=== PATIENT | female | born 1990 | race Caucasian/White ===

== ENCOUNTER 2016-12-17 12:30 | Inpatient (IN) | payer OTHER ==
[2016-12-17] MEDS ORDERED: KETOROLAC 30 MG/ML 1 ML VIAL IVP STA (13:02)
[2016-12-17] MEDS ORDERED: SODIUM CHLORIDE 0.9% 1,000 ML IV STA (13:02)
[2016-12-17] MEDS ORDERED: MORPHINE SULFATE 4 MG/ML SYRINGE IV STA (13:02)
--- NOTE | 2016-12-17 13:02 | ED ---
General Adult HPI - General Chief complaint: Abdominal Pain Stated complaint: Gall Bladder issues Time Seen by Provider: 12/17/16 12:43 Source: patient, RN notes reviewed, old records reviewed Mode of arrival: ambulatory Limitations: no limitations - History of Present Illness Initial comments: This is a 26-year-old female who ER for evaluation of gallbladder disease. Epigastric and right upper quadrant abdominal pain. Patient has had her tubes tied, no chance of no nausea vomiting or diarrhea, she was late with no fevers. Patient has been seen by general surgery Dr. Sanchez prior for similar symptoms. Patient states he symptoms are now for 3 days radiating to back rotating around into her front. With nausea again without vomiting - Related Data Home Medications Medication Instructions Recorded Confirmed HYDROcodone/APAP 10-325MG [[place] 1 tab PO TID PRN 04/06/16 12/17/16 10-325] Albuterol Inhaler [Ventolin Hfa 1 - 2 puff INHALATION RT-Q6H PRN 12/17/16 Inhaler] Allergies Allergy/AdvReac Type Severity Reaction Status Date / Time No Known Allergies Allergy Verified 12/17/16 13:18 Review of Systems ROS Statement: Those systems with pertinent positive or pertinent negative responses have been documented in the HPI. ROS Other: All systems not noted in ROS Statement are negative. Past Medical History Past Medical History: Asthma Additional Past Medical History / Comment(s): Gallstones, Bipolar, DDD History of Any Multi-Drug Resistant Organisms: None Reported Past Surgical History: Section, Tubal Ligation Additional Past Surgical History / Comment(s): tubal ligation, section x 3 Past Psychological History: Anxiety, Bipolar, Depression Smoking Status: Current every day smoker Past Alcohol Use History: None Reported Past Drug Use History: None Reported General Exam Limitations: no limitations General appearance: alert, in no apparent distress Head exam: Present: atraumatic, normocephalic, normal inspection Eye exam: Present: normal appearance, PERRL, EOMI. Absent: scleral icterus, conjunctival injection, periorbital swelling ENT exam: Present: normal exam, mucous membranes moist Neck exam: Present: normal inspection. Absent: tenderness, meningismus, lymphadenopathy Respiratory exam: Present: normal lung sounds bilaterally. Absent: respiratory distress, wheezes, rales, rhonchi, stridor Cardiovascular Exam: Present: regular rate, normal rhythm, normal heart sounds. Absent: systolic murmur, diastolic murmur, rubs, gallop, clicks GI/Abdominal exam: Present: soft, tenderness, normal bowel sounds. Absent: distended, guarding, rebound, rigid Extremities exam: Present: normal inspection, full ROM, normal capillary refill. Absent: tenderness, pedal edema, joint swelling, calf tenderness Back exam: Present: normal inspection Neurological exam: Present: alert, oriented X3, CN II-XII intact Psychiatric exam: Present: normal affect, normal mood Skin exam: Present: warm, dry, intact, normal color. Absent: rash Course Vital Signs 12/17/16 12/17/16 12:35 15:26 Temperature 97.3 F L 97.9 F Pulse Rate 70 82 Respiratory 17 18 Rate Blood Pressure 113/56 105/66 O2 Sat by Pulse 100 100 Oximetry - Reevaluation(s) Reevaluation #1: 12/17/16 15:54 Patient's pain is symptoms are well controlled Reevaluation #2: 12/17/16 15:54 Spoke with on-call general surgery, will see and evaluate patient Medical Decision Making - Medical Decision Making 26 female here for evaluation of viral quadrant abdominal pain, ultrasound positive for cholecystitis, patient has history of gallbladder disease will be admitted for surgical evaluation and treatment - Lab Data Result diagrams: 12/17/16 12:56 12/17/16 12:56 Lab Results 12/17/16 12/17/16 Range/Units 12:56 12:56 WBC 8.6 (3.8-10.6) k/uL RBC 4.92 (3.80-5.40) m/uL Hgb 14.7 (11.4-16.0) gm/dL Hct 45.0 (34.0-46.0) % MCV 91.6 (80.0-100.0) fL MCH 29.9 (25.0-35.0) pg MCHC 32.6 (31.0-37.0) g/dL RDW 12.6 (11.5-15.5) % Plt Count 399 (150-450) k/uL Neutrophils % 67 % Lymphocytes % 23 % Monocytes % 5 % Eosinophils % 2 % Basophils % 1 % Neutrophils # 5.8 (1.3-7.7) k/uL Lymphocytes # 2.0 (1.0-4.8) k/uL Monocytes # 0.4 (0-1.0) k/uL Eosinophils # 0.2 (0-0.7) k/uL Basophils # 0.0 (0-0.2) k/uL Sodium 143 (137-145) mmol/L Potassium 4.0 (3.5-5.1) mmol/L Chloride 105 (98-107) mmol/L Carbon Dioxide 26 (22-30) mmol/L Anion Gap 12 mmol/L BUN 15 (7-17) mg/dL Creatinine 0.78 (0.52-1.04) mg/dL Est GFR (MDRD) Af Amer >60 (>60 ml/min/1.73 sqM) Est GFR (MDRD) Non-Af >60 (>60 ml/min/1.73 sqM) Glucose 79 (74-99) mg/dL Calcium 9.8 (8.4-10.2) mg/dL Total Bilirubin 1.0 (0.2-1.3) mg/dL AST 22 (14-36) U/L ALT 33 (9-52) U/L Alkaline Phosphatase 52 (38-126) U/L Total Protein 7.6 (6.3-8.2) g/dL Albumin 4.4 (3.5-5.0) g/dL Amylase 34 (30-110) U/L Lipase 54 (23-300) U/L - Radiology Data Radiology results: report reviewed (Ultrasound positive for acute cholecystitis) , image reviewed Disposition Clinical Impression: Acute cholecystitis, Biliary colic Disposition: ADMITTED IP TO THIS [facility] Condition: Good Referrals: Kailash Paniagua MD [Primary Care Provider] - 1-2 days
[2016-12-17] MEDS ORDERED: PANTOPRAZOLE 40 MG/10 ML VIAL IVP STA (13:03)
[2016-12-17] MEDS ORDERED: ONDANSETRON 4 MG/2 ML VIAL IVP STA (13:03)
[2016-12-17 13:18] LABS: Basophils % (A) 1 %; CH 30.6; CHCM 33.5; Eosinophils # (A) 0.2 k/uL (0-0.7); Eosinophils % (A) 2 %; HDW 2.33; HGB 14.7 gm/dL (11.4-16.0); Luc # (Auto) 0.22; Luc % (Auto) 3; Lymphocytes % (A) 23 %; MCH 29.9 pg (25.0-35.0); MCHC 32.6 g/dL (31.0-37.0); MCV 91.6 fL (80.0-100.0); Mean Platelet Volume 6.9; Monocytes # (A) 0.4 k/uL (0-1.0); Monocytes % (A) 5 %; Neutrophils # (A) 5.8 k/uL (1.3-7.7); Neutrophils % (A) 67 %; RBC 4.92 m/uL (3.80-5.40); RDW 12.6 % (11.5-15.5); WBC 8.6 k/uL (3.8-10.6); WBC (Perox) 8.83
[2016-12-17 13:33] LABS: ALT 33 U/L (9-52); AST 22 U/L (14-36); Alkaline Phosphatase 52 U/L (38-126); Amylase 34 U/L (30-110); Anion Gap 12 mmol/L; Blood Urea Nitrogen 15 mg/dL (7-17); Calcium 9.8 mg/dL (8.4-10.2); Carbon Dioxide 26 mmol/L (22-30); Chloride 105 mmol/L (98-107); Glucose 79 mg/dL (74-99); Non-African American GFR(MDRD) >60 (>60 ml/min/1.73 sqM); Sodium 143 mmol/L (137-145); Total Protein 7.6 g/dL (6.3-8.2)
--- NOTE | 2016-12-17 14:25 | US ---
EXAMINATION TYPE: US gallbladder DATE OF EXAM: 12/17/2016 2:02 PM COMPARISON: Previous study dated 04/14/2014. CLINICAL HISTORY: Pain. RUQ, back pain, history of gallstone EXAM MEASUREMENTS: Liver Length: 14.7 cm Gallbladder Wall: 0.3 cm CBD: 0.2 cm Right Kidney: 11.6 x 3.1 x 4.6 cm TECHNOLOGIST IMPRESSION: Pancreas: visualized portions appear wnl Liver: appears wnl Gallbladder: gallstone = 2.2cm, GB wall upper limits of normal Evidence for sonographic Bates's sign: yes CBD: wnl Right Kidney: wnl IMPRESSION: CHOLELITHIASIS AND POSSIBLE ACUTE CHOLECYSTITIS.
[2016-12-17] MEDS ORDERED: AMPICILLIN-SULBACTAM 3 GM in SODIUM CHLORIDE 0.9% 100 ML IVPB STA (14:50)
--- NOTE | 2016-12-17 14:52 | P.PN ---
Progress Note - Text Case reviewed with Dr. Ruiz. Ultrasound demonstrates findings consistent with acute cholecystitis. Will proceed with surgical intervention laparoscopic cholecystectomy possible open.
[2016-12-17] MEDS ORDERED: ACETAMINOPHEN IV (For NPO) 1,000 MG in EMPTY BAG 1 BAG IVPB STA (14:55)
[2016-12-17] MEDS: SODIUM CHLORIDE 0.9% 1,000 ML IV ONE ×3 (15:21→23:39)
[2016-12-17] MEDS: MORPHINE SULFATE 4 MG/ML SYRINGE IVP PRN ×2 (17:45→21:26)
[2016-12-17] MEDS: ACETAMINOPHEN IV (For NPO) 1,000 MG in EMPTY BAG 1 BAG IVPB SCH (23:53)
[2016-12-18] MEDS: AMPICILLIN-SULBACTAM 3 GM in SODIUM CHLORIDE 0.9% 100 ML IVPB SCH ×3 (00:41→16:34)
[2016-12-18] MEDS: MORPHINE SULFATE 4 MG/ML SYRINGE IVP PRN ×3 (01:39→11:00)
[2016-12-18] MEDS: ACETAMINOPHEN IV (For NPO) 1,000 MG in EMPTY BAG 1 BAG IVPB SCH ×3 (06:20→18:10)
--- NOTE | 2016-12-18 07:46 | P.GSHP ---
History of Present Illness H&P Date: 12/17/16 CHIEF COMPLAINT: Cholecystitis HISTORY OF PRESENT ILLNESS: The patient is a 26-year-old female who presents with history of acute onset epigastric including right upper quadrant abdominal pain. Pain is now progressively last 3 days. She reports nausea and vomiting despite fatty foods. She has a family history of gallbladder disease. She underwent diagnostic studies for her gallbladder which is consistent with acute cholecystitis. Now she presents for surgical intervention. PAST MEDICAL HISTORY: Please see list PAST SURGICAL HISTORY: Please see list MEDICATIONS: Please see list ALLERGIES: Denies. SOCIAL HISTORY: Has illicit drug use and recent tobacco use FAMILY HISTORY: Pertinent for gallbladder disease REVIEW OF ORGAN SYSTEMS: CONSTITUTIONAL: No reports of fevers or chills. HEENT: Denies any troubles with the vision or hearing. ENDOCRINE: No reports of hypothyroidism. No diabetes. RESPIRATORY: No recent pneumonias. CARDIOVASCULAR: Denies chest pain or palpitations GI: No blood in stools or constipation. MUSCULOSKELETAL: Has occasional joint pain including back pain. NEURO: No seizure disorders or headaches. No recent stroke. PSYCH: Has depression or suicidal ideation. Has bipolar disorder. HEMATOLOGIC: No personal or family history of DVTs or pulmonary emboli. PHYSICAL EXAM: VITAL SIGNS: Afebrile vital signs stable GENERAL: Well-developed pleasant in no acute distress. HEENT: No scleral icterus. Extraocular movements grossly intact. Moist buccal mucosa. NECK: Supple without lymphadenopathy. CHEST: Unlabored respirations. Equal bilateral excursions. CARDIOVASCULAR: Regular rate regular rhythm rhythm. Distal 2+ pulses. ABDOMEN: Soft, nondistended. Tender along the epigastrium and right upper quadrant with deep palpation. MUSCULOSKELETAL: No clubbing, cyanosis, or edema. NEURO: Cranial nerves II to XII within normal limits. No focal or lateralizing signs. PSYCH: Alert and oriented to person, place and time. STUDIES: Ultrasound demonstrates acute cholecystitis with gallstones. ASSESSMENT: 1. Epigastric and right upper quadrant abdominal pain. 2. Acute cholecystitis 3. Symptomatic gallstones. 4. History of tobacco use. 5. History of bipolar disorder. PLAN: 1. Will need a laparoscopic cholecystectomy possible open. Benefits and risks were described. 2. Heparin for DVT prophylaxis 5000 units. 3. Continue IV antibiotics. 4. Incentive spirometry for pulmonary toilet. 5. Low-fat diet postop. 6. Postoperative convalescence at minimum 1 week. Past Medical History Past Medical History: Asthma Additional Past Medical History / Comment(s): Gallstones, Bipolar, DDD History of Any Multi-Drug Resistant Organisms: None Reported Past Surgical History: Section, Tubal Ligation Additional Past Surgical History / Comment(s): tubal ligation, section x 3 Past Psychological History: Anxiety, Bipolar, Depression Smoking Status: Current every day smoker Past Alcohol Use History: None Reported Past Drug Use History: Marijuana - Past Family History Mother Family Medical History: Asthma Additional Family Medical History / Comment(s): fibromyalgia Medications and Allergies Home Medications Medication Instructions Recorded Confirmed Type HYDROcodone/APAP 10-325MG [[place] 1 tab PO TID PRN 04/06/16 12/17/16 History 10-325] Albuterol Inhaler [Ventolin Hfa 1 - 2 puff INHALATION RT-Q6H PRN 12/17/16 History Inhaler] Allergies Allergy/AdvReac Type Severity Reaction Status Date / Time No Known Allergies Allergy Verified 12/17/16 16:41 Surgical - Exam Vital Signs Temp Pulse Resp BP Pulse Ox 97.3 F L 70 17 113/56 100 12/17/16 12:35 12/17/16 12:35 12/17/16 12:35 12/17/16 12:35 12/17/16 12:35 Results - Labs 12/17/16 12:56 12/17/16 12:56
[2016-12-18] MEDS: SODIUM CHLORIDE 0.9% 1,000 ML IV ONE (10:51)
--- NOTE | 2016-12-18 12:28 | P.HPADDEND ---
H&P Addendum H&P Addendum Date: 12/18/16 Benefits and risks of laparoscopic cholecystectomy was reviewed. All questions were addressed.
[2016-12-18] MEDS ORDERED: ceFAZolin 2 GM in SODIUM CHLORIDE 0.9% 100 ML IVPB ONE (12:30)
[2016-12-18] MEDS ORDERED: SODIUM CHLORIDE 0.9% 1,000 ML IV ONE ×2 (13:45→15:59)
[2016-12-18] MEDS ORDERED: MIDAZOLAM 2 MG/2 ML VIAL ONE (14:19)
[2016-12-18] MEDS ORDERED: NEOSTIGMINE 1 MG/ML 10 ML VIAL ONE (14:19)
[2016-12-18] MEDS ORDERED: GLYCOPYRROLATE 0.2 MG/ML 2 ML VIAL ONE (14:19)
[2016-12-18] MEDS ORDERED: HEPARIN SODIUM,PORCINE 5,000 UNIT/ML 1 ML VIAL ONE (14:19)
[2016-12-18] MEDS ORDERED: LIDOCAINE 1% INJ 10MG/ML (20 ML MDV) ONE (14:19)
[2016-12-18] MEDS ORDERED: PROPOFOL 10 MG/ML 20 ML VIAL IV ONE (14:19)
[2016-12-18] MEDS ORDERED: SUCCINYLCHOLINE CHLORIDE 100 MG/5 ML SYR IV ONE (14:19)
[2016-12-18] MEDS ORDERED: ONDANSETRON 4 MG/2 ML VIAL ONE (14:19)
[2016-12-18] MEDS ORDERED: VECURONIUM 10 MG VIAL IV ONE (14:19)
[2016-12-18] MEDS ORDERED: fentaNYL (PF) 50 MCG/ML 2 ML AMP ONE (14:19)
[2016-12-18] MEDS ORDERED: HYDROmorphone (PF) 1 MG/ML ONE (14:19)
[2016-12-18] MEDS ORDERED: BUPIVACAIN-EPI 0.25%-1:200,000 30 ML VIAL SQ ONE (14:48)
[2016-12-18] MEDS ORDERED: HYDROcodone/APAP 5-325MG 1 EACH TAB PO PRN (15:25)
[2016-12-18] MEDS ORDERED: NALOXONE 0.4 MG/ML 1 ML VIAL IV PRN (15:25)
--- NOTE | 2016-12-18 15:25 | P.OP ---
Date of Procedure: 12/18/16 Description of Procedure: SURGEON: MARBIN SANCHEZ MD [place] [employer] INSPECTOR: None. PREOPERATIVE DIAGNOSES: 1. Acute cholecystitis. 2. Symptomatic cholelithiasis. 3. Abnormal gallbladder ultrasound. 4. Bipolar disorder. 5. History of tobacco use. 6. History of marijuana use. 7. History of anxiety. POSTOPERATIVE DIAGNOSES: 1. Acute cholecystitis with impacted gallstone along infundibulum. 2. Symptomatic cholelithiasis. 3. Abnormal gallbladder ultrasound. 4. Bipolar disorder. 5. History of tobacco use. 6. History of marijuana use. 7. History of anxiety. 8. Right upper quadrant pericholecystic adhesions secondary to chronic cholecystitis. 9. Fatty liver disease with hepatomegaly. OPERATION: Laparoscopic cholecystectomy ANESTHESIA: General with 30 mL 0.25% Marcaine with epinephrine. ESTIMATED BLOOD LOSS: 5 mL. SPECIMENS REMOVED: Gallbladder. COMPLICATIONS: None. INDICATIONS: The patient is a 26-year-old female who presents with chronic cholelcystitis. Surgical intervention with a laparoscopic cholecystectomy was described at length including injury to the biliary tree, bleeding, infection, need for further surgery. Informed consent was obtained. DESCRIPTION OF THE PROCEDURE: The patient was brought to the operating room, laid in supine position. After general induction, the abdomen was prepped and draped in a standard sterile fashion. Prior to incision, a timeout protocol was confirmed with surgical team regarding patient's name, procedure to be performed including preoperative medications for which she had received heparin 5000 units subcutaneously as well as bilateral SCDs for DVT prophylaxis. A transverse 5 mm incision was made above the umbilicus and off to the right of the midline. Please note the skin was localized prior to incision. A 0 degree 5-mm laparoscopic trocar entry was performed and entered into the peritoneal cavity. Diagnostic laparoscopy confirmed no injury to bowel, viscera or mesentery. The liver serosa was consistent with fatty liver disease and hepatomegaly. Next , two 5 mm trocars were placed along the right costal margin followed by a 11 mm port at the left upper quadrant. Moderate adhesions were found about the gallbladder from chronic cholecystitis. The patient was placed in steep reverse Trendelenburg position with the right side up. Lysis of adhesions were performed using a Sonicision and electro-Bovie cautery for 15 minutes. The gallbladder fundus was retracted over the dome of the liver. Initial attention was brought to the infundibulum which was gently retracted in the inferior lateral approach. Using a Kittner, the cystic duct including the cystic artery was carefully skeletonized. Using a large clip furnace cooler 2 clips were placed proximally, and 2 clip was placed distally along the cystic duct and then cut. Again care was taken to avoid any injury to the biliary tree as the common bile duct was clearly visualized during this portion of dissection. Next, the cystic artery was clipped twice proximally, once distally and then cauterized. Cystic structures were divided using a Sonicision. Electro-Bovie cautery was used to remove the gallbladder from the hepatic fossa. The abdomen was irrigated with 2 L of normal saline solution for bile within the abdomen. Hemostasis was checked and found to be adequate. The gallbladder was removed from the abdominal cavity using an Endo Catch bag and passed off for further pathological analysis. All instruments and pneumoperitoneum were removed from the abdominal cavity. The fascial defect was less than 8 mm for the 11-mm port site. The rest of incisions were reapproximated using 4-0 Monocryl in an interrupted subcuticular fashion. A total of 30 mL of 0.25% Marcaine with epinephrine was infiltrated to all wounds for postop analgesia. Dermabond was applied to the skin. At the end of the procedure, needle, sponge, and instrument count was verified correct by surgical supply assistant. The patient had tolerated the procedure well and was taken to postanesthesia care unit in stable condition. FINDINGS: 1. Acute on chronic cholecystitis. 2. Chronic hepatic adhesions of the gallbladder. 3. Fatty liver disease with hepatomegaly.
[2016-12-18] MEDS: HYDROmorphone 1 MG/ML 1 ML SYRINGE IVP ONE ×2 (15:35→15:45)
--- NOTE | 2016-12-18 15:36 | P.PN ---
Progress Note - Text Patient is tearful postop. She is eager to go home. Postoperative instructions including tolerating diet prior to discharge was reviewed. Patient to follow-up in the office in 5 days.
[2016-12-18] MEDS: MEPERIDINE 50 MG/ML SYRINGE IVP ONE ×2 (15:40→15:50)
[2016-12-18 18:13] VITALS: PULSE 82; RESP 18
[2016-12-18] MEDS ORDERED: ONDANSETRON 4 MG/2 ML VIAL IVP STA (18:39)
[2016-12-18 19:12] VITALS: BP 121/65; TEMP 98.1
[2016-12-19] MEDS ORDERED: PANTOPRAZOLE 40 MG/10 ML VIAL IV SCH (09:00)
--- NOTE | 2016-12-22 21:07 | P.DS ---
Providers Date of admission: 12/17/16 14:56 Expected date of discharge: 12/18/16 Attending physician: Cammy Torres Primary care physician: Kailash Paniagua - Discharge Diagnosis(es) (1) Acute cholecystitis due to biliary calculus Status: Acute (2) Gallstones Status: Chronic (3) Peritoneal adhesions Status: Acute (4) Bipolar disorder Status: Chronic (5) Depression Status: Chronic (6) Anxiety Status: Chronic (7) Tobacco dependence Status: Chronic (8) Marijuana use Status: Chronic Hospital Course: COURSE: The patient is a 26-year-old female who presents with history of acute onset epigastric including right upper quadrant abdominal pain. Pain is now progressively last 3 days. She reports nausea and vomiting despite fatty foods. She has a family history of gallbladder disease. She underwent diagnostic studies for her gallbladder which is consistent with acute cholecystitis. She went to the operating room and had a cholecystectomy which was uncomplicated. Postoperatively, she was tolerating diet. Pain was controlled. Discharge instructions were verbalized. Pertinent Studies: Ultrasound demonstrated acute cholecystitis and gallstones impacted along the infundibulum Procedures: Laparoscopic cholecystectomy Patient Condition at Discharge: Good Plan - Discharge Summary New Discharge Prescriptions: Hydrocodone/Acetaminophen [[place] 5-325] 1 - 2 each PO Q6HR PRN #20 tab PRN Reason: Pain Discharge Medication List HYDROcodone/APAP 10-325MG [[place] 10-325] 1 tab PO TID PRN 04/06/16 [History] Albuterol Inhaler [Ventolin Hfa Inhaler] 1 - 2 puff INHALATION RT-Q6H PRN [History] Hydrocodone/Acetaminophen [[place] 5-325] 1 - 2 each PO Q6HR PRN #20 tab 12/18/16 [Rx] Follow up Appointment(s)/Referral(s): Kailash Paniagua MD [Primary Care Provider] - 1-2 days Cammy Torres MD [STAFF PHYSICIAN] - 12/21/16 Patient Instructions/Handouts: Low Fat Diet (GEN), Laparoscopic Cholecystectomy (DC) Activity/Diet/Wound Care/Special Instructions: Continue diet as tolerated. Low-fat diet recommended until seen by surgeon. Drink fluids, practice good hand washing. Do not take a tub bath or submerge surgical sites. Do not pick at surgical sites or glue. When taking showers, allow water to run over site. May shower tomorrow.Call physician with any comments, questions, concerns, or worsening symptoms i.e. fever of 101.1 or higher, nausea or vomiting that is not controlled, pain that is not controlled with prescribed medication, excessive redness, swelling, or foul odor. No lifting over 5 pounds in 1 week (a gallon of milk is 5 pounds). Apply ice packs generously. Discharge Disposition: HOME SELF-CARE
== END 2016-12-18 19:00 | disposition home or self-care (01) | DRG 419 ==
LOC: EC 12:30 → 6PED 14:56
PROVIDERS: ADMIT Surgery Plastic and Reconstructive Surgery; ATTEND Surgery Plastic and Reconstructive Surgery
PROC: 0FN44ZZ Release Gallbladder, Percutaneous Endoscopic Approach (ICD-10-PCS; principal; 2016-12-18 13:10)
PROC: 0FT44ZZ Resection of Gallbladder, Percutaneous Endoscopic Approach (ICD-10-PCS; principal; 2016-12-18 13:10)
DX: K80.13 Calculus of gallbladder with acute and chronic cholecystitis with obstruction (principal); K76.0 Fatty (change of) liver, not elsewhere classified; F17.200 Nicotine dependence, unspecified, uncomplicated; F12.90 Cannabis use, unspecified, uncomplicated; K82.8 Other specified diseases of gallbladder; J45.909 Unspecified asthma, uncomplicated; K66.0 Peritoneal adhesions (postprocedural) (postinfection); Z79.899 Other long term (current) drug therapy
CPT/HCPCS: 36415; 76705; 80053; 81025; 82150; 83690; 85025; 88304; 96361; 96365; 96367; 96375; 99285

== ENCOUNTER → 2017-11-15 | Outpatient (CLI) | payer OTHER ==
--- NOTE | 2017-11-15 15:34 | MR ---
EXAMINATION TYPE: MR lumbar spine wo con DATE OF EXAM: 11/15/2017 COMPARISON: 04/06/2016 lumbar spine radiographs HISTORY: Low back pain TECHNIQUE: Multiplanar, multisequence images of the lumbar spine were acquired. FINDINGS: There is diffuse decreased signal of the bone marrow throughout the lumbar spine on T1 and T2 nonfat sat images. Lumbar vertebral bodies maintain normal vertebral body height and alignment. Co nus medullaris is unremarkable terminating at L1-L2. Multilevel disc desiccation is present at L3-S1. L1-L2: Normal disc appearance without desiccation. No herniation, protrusion or disc bulging. No ca nal stenosis is present. Foramina are patent bilaterally. L2-L3: Normal disc appearance without desiccation. No herniation, protrusion or disc bulging. No ca nal stenosis is present. Foramina are patent bilaterally. L3-L4: There is a focal central disc herniation/protrusion creating mild spinal canal stenosis. No ne ural foraminal narrowing. L4-L5: There is a focal central disc herniation/protrusion superimposed upon a small broad-based disc bulge and disc desiccation. No neural foraminal narrowing. There is resultant mild to moderate spina l canal stenosis. L5-S1: There is a left paracentral disc herniation/protrusion superimposed upon disc desiccation and a broad-based disc bulge resulting in mild left neural foraminal narrowing. Right neural foramen is p atent. There is mild resultant spinal canal stenosis. IMPRESSION: 1. Central disc herniation at L3-L4 creating mild spinal canal stenosis. 2. Central disc herniation at L4-L5 creating mild to moderate spinal canal stenosis. 3. Left paracentral disc herniation at L5-S1 resulting in mild spinal canal stenosis and mild left ne ural foraminal narrowing. 4. Diffuse hypointensity throughout the bone marrow. This is most commonly related to anemia although can be seen in myeloproliferative disorders/lymphoma/leukemia. Correlate with CBC.
== END | disposition home or self-care (01) ==
LOC: RADMRIMAIN 10:37
PROVIDERS: ATTEND Psychiatry & Neurology Neurology
DX: M48.07 Spinal stenosis, lumbosacral region (principal); M99.73 Connective tissue and disc stenosis of intervertebral foramina of lumbar region; M51.27 Other intervertebral disc displacement, lumbosacral region
CPT/HCPCS: 72148